=== PATIENT | male | born 1975 | race Two or more races ===

== ENCOUNTER 2019-08-02 13:02 | Emergency (ER) | payer SELFPAY ==
[~2019-08-02] VITALS: Ht 175.3 cm; Wt 77.1 kg
--- NOTE | 2019-08-02 13:20 | NUR ---
ED Nurse Note:pt. was BIBA from the street with behavioral complain, he reported taking crystal meth, VSS, pt. is A/Ox3 ambulatory with steady gait, skin is intact, given PO and IV fluids
[2019-08-02 13:43] VITALS: BP 136/82
--- NOTE | 2019-08-02 13:44 | Emergency Room Report ---
History of Present Illness General Chief Complaint: Behavioral Complaint Source: Patient, EMS Present Illness HPI 44-year-old male presents with feeling excitable, off after utilizing amphetamines, patient presents for evaluation was seen acting out on the street with bizarre behavior aggravated by amphetamines alleviated by not taking amphetamines severity was moderate, constant patient was brought in by EMS as well as PD Allergies: Coded Allergies: UNABLE TO ASSESS (Unverified , 08/02/19) COVID-19 Screening Contact w/high risk pt: No Recent Travel to affected area: No Experienced COVID-19 symptoms?: No Patient History Past Medical History: see triage record Social History: Reports: smoking, alcohol use, drug use Reviewed Nursing Documentation: PMH: Agreed; PSxH: Agreed Nursing Documentation-PMH Past Medical History: Deferred Review of Systems All Other Systems: negative except mentioned in HPI Physical Exam Vital Signs Date Time Temp Pulse Resp B/P (MAP) Pulse Ox O2 Delivery O2 Flow Rate FiO2 08/02/19 13:03 109 18 136/82 (100) 99 Room Air General Appearance: well appearing, no apparent distress Head: normocephalic, atraumatic ENT: hearing grossly normal, normal voice Neck: full range of motion, supple Respiratory: no respiratory distress, speaking full sentences Musculoskeletal: moves extm spontaneously Neurologic: alert, normal gait Psychiatric: anxious Skin: no rash Medical Decision Making Diagnostic Impression: Primary Impression: Behavioral disorder Additional Impression: Amphetamine abuse ER Course 44-year-old male presents with acute amphetamine abuse, patient was hyperexcitable, dehydrated clinically. Will keep patient until he fay, 2 L of fluid were ordered in order to rehydrate patient will allow patient to calm down Patient at 3:09 PM just wanted food and left without his papers would not give us his full name Counseled patient that he cannot just leave, patient then eloped and walked out Last Vital Signs Date Time Temp Pulse Resp B/P (MAP) Pulse Ox O2 Delivery O2 Flow Rate FiO2 08/02/19 13:03 109 18 136/82 (100) 99 Room Air Disposition: ELOPED Condition: Stable Referrals: [facility] Patient Instructions: Stimulant Use Disorder-Amphetamines, Self-Destructive Behavior Additional Instructions: The patient was provided with discharge instructions, notified to follow-up with a primary care doctor and or specialist in the next 24-48 hours, and to return to the ED if they have worsening of their symptoms. Please note that this report is being documented using [employer] technology. This can lead to erroneous entry secondary to incorrect interpretation by the dictating instrument. Issa Siegel MD Aug 02, 2019 13:44
[2019-08-02 15:10] VITALS: BP 136/82
--- NOTE | 2019-08-02 15:10 | NUR ---
Homeless Discharge: Patient is being discharged from medical care. Awake, alert and oriented x3. After care instructions, including referral to community resources were given. Patient verbalized understanding of After care instructions; at this time patient does not request medications, equipment or placement. Patient refused to sign patient consent in the medical record for patient destination upon discharge. All medical devices such as IV and ID band were removed. Patient ambulated out with all personal belongings with steady gait.
== END 2019-08-02 15:30 | disposition left against medical advice (07) ==
LOC: EDBD 13:02 → EMR 13:36
DX: F60.9 Personality disorder, unspecified (principal); F15.10 Other stimulant abuse, uncomplicated
CPT/HCPCS: 96360; 96361; 99284